=== PATIENT | male | born 1990 | race Caucasian/White ===

== ENCOUNTER 2018-02-17 20:50 | Inpatient (IN) | payer OTHER ==
[~2018-02-17] VITALS: Ht 175.3 cm; Wt 80.7 kg
[2018-02-17] MEDS ORDERED: MAGNESIUM HYDROXIDE 30 ML LIQUID UDC PO PRN (22:00)
[2018-02-17] MEDS ORDERED: THIAMINE HCL 200 MG/2 ML VIAL IM ONE (22:00)
[2018-02-17] MEDS ORDERED: NICOTINE POLACRILEX 4 MG GUM-PK OF TEN BC PRN (22:00)
[2018-02-17] MEDS ORDERED: LORAZEPAM 1 MG TABLET PO PRN ×2 (22:00)
[2018-02-17] MEDS ORDERED: CLONIDINE HCL 0.1 MG TABLET PO PRN (22:00)
[2018-02-17] MEDS ORDERED: MAG HYDROX/AL HYDROX/SIMETH 30 ML LIQUID UDC PO PRN (22:00)
[2018-02-17] MEDS ORDERED: LORAZEPAM 2 MG/1 ML VIAL IM PRN (22:00)
[2018-02-17] MEDS ORDERED: ONDANSETRON ODT 4 MG TAB.RAPDIS SL PRN (22:00)
[2018-02-17] MEDS ORDERED: ACETAMINOPHEN 325 MG TABLET PO PRN (22:00)
[2018-02-17] MEDS ORDERED: ONDANSETRON 4 MG/2 ML VIAL IM PRN (22:00)
[2018-02-17] MEDS ORDERED: LOPERAMIDE HCL 2 MG CAPSULE PO PRN ×2 (22:00)
[2018-02-17] MEDS ORDERED: NICOTINE 14 MG/24HR PATCH TD PRN (22:00)
[2018-02-17] MEDS ORDERED: DICYCLOMINE HCL 20 MG TABLET PO PRN (22:00)
[2018-02-17] MEDS ORDERED: MIRALAX 17 GM POWD.PACK PO PRN (22:00)
[2018-02-17] MEDS ORDERED: LORAZEPAM 1 MG TABLET PO ONE (23:15)
[2018-02-18] VITALS: BP 145/80
--- NOTE | 2018-02-18 | NUR ---
PRE - ADMISSION NOTE : Patient is 27 year old male came for supervised withdrawal from alcohol on 02/17/2018. He denies history of seizures , confirms history of withdrawal induced delirium, Depression, accidental intoxication-induced overdoses. He doesnt have Primary Care Provider at this time. Longest sober period was 8 days in January 2018. He states his alcohol use has negatively affected his social, mental and professional life. Upon assessment, pt is alert and oriented x4, speech is clear and audible. Pt noted to be anxious, restless time to time, worried, mild intoxicated without acute withdrawal signs. Heart rate regular. Denies chest pain or SOB. PERRLA, breathing is even and unlabored, lung sounds clear. Denies nausea, vomiting, tactile disturbances, visual or auditory hallucinations at this time. Abdomen is soft and non-distended. Bowel sounds present in all quadrants, last BM 02/17/18. Pt reports that BM is regular, QD. Pt's skin is warm, dry and intact, no open skin damages. GB=362/80, HR=80, RR=16, Spo2=97%, denies pain. Endfnq=[id number], Height=59. CIWA=9. Pt. will be admitted to the unit
[2018-02-18 00:02] LABS: BASOPHILS # (AUTO) 0.1 K/uL (0.0-8.0); BASOPHILS % (AUTO) 1.4 % (0.0-2.0); EOSINOPHILS # (AUTO) 0.3 K/uL (0.0-0.7); EOSINOPHILS % (AUTO) 3.8 % (0.0-7.0); HEMOGLOBIN 16.5 g/dL (12.5-16.3); LYMPHOCYTES # (AUTO) 2.3 K/uL (20.0-40.0); LYMPHOCYTES % (AUTO) 27.6 % (20.5-51.5); MEAN CORPUSCULAR HEMOGLOBIN 30.9 uug (23.8-33.4); MEAN CORPUSCULAR HGB CONC 35 g/dL (32.5-36.3); MONOCYTES % (AUTO) 11.6 % (0.0-11.0); NEUTROPHILS # (AUTO) 4.7 K/uL (1.8-8.9); NEUTROPHILS % (AUTO) 55.6 % (38.5-71.5); PLATELET COUNT (AUTO) 172 K/uL (152-348); RED BLOOD CELL COUNT(AUTO) 5.34 MIL/uL (4.06-5.63); WHITE BLOOD COUNT (AUTO) 8.4 K/uL (3.6-10.2)
--- NOTE | 2018-02-18 00:05 | NUR ---
PRN BENADRYL Pt. complains of difficulty falling asleep, insomnia. PRN BENADRYL given as ordered. Safety measures in place : bed on lowest position with side rails x2 up for safety, call light within reach. Will continue to monitor closely and offer help. Addendum: 02/18/18 at 0607 by LIZZETTE MERCADO RN WRONG ENTRY.NO PRN GIVEN
[2018-02-18 00:19] LABS: ALANINE AMINOTRANSFERASE 391 U/L (16-63); ALKALINE PHOSPHATASE 35 U/L (50-136); AMYLASE 48 U/L (25-115); ASPARTATE AMINOTRANSFERASE 151 U/L (15-37); BILIRUBIN,TOTAL 0.6 mg/dL (0.2-1.0); CARBON DIOXIDE 24 mmol/L (21-32); CHLORIDE 98 mmol/L (98-107); CREATININE 0.8 mg/dL (0.6-1.3); ETHANOL < 3 MG/DL (0-0); GLUCOSE 89 mg/dL (74-106); MAGNESIUM 1.8 mg/dL (1.8-2.4); POTASSIUM 3.3 mmol/L (3.5-5.1); TOTAL PROTEIN, SERUM 8.4 g/dL (6.4-8.2); UREA NITROGEN, BLOOD 13 mg/dL (7-18)
[2018-02-18 00:32] LABS: *AMPHETAMINE, URINE NEGATIVE (NEGATIVE); *BARBITURATE, URINE NEGATIVE (NEGATIVE); *CANNABINOID, URINE POSITIVE (NEGATIVE); *COCCAINE, URINE NEGATIVE (NEGATIVE); *OPIATE, URINE NEGATIVE (NEGATIVE); *PHENCYCLIDINE SCREEN,URINE NEGATIVE (NEGATIVE)
[2018-02-18] MEDS ORDERED: [UNRECOGNIZED DRUG - OTHER] (00:54)
[2018-02-18] MEDS ORDERED: orajel (00:54)
[2018-02-18] MEDS ORDERED: FLUT16SP NS (00:54)
--- NOTE | 2018-02-18 01:00 | NUR ---
ADMISSION NOTE : Patient is 27 year old male admitted for supervised withdrawal from alcohol on 02/17/2018. Pt. is NKA, FULL CODE, on Reg.Diet. He denies history of seizures , confirms history of withdrawal induced delirium, Depression, accidental intoxication-induced overdoses. He doesnt have Primary Care Provider at this time. Pt. brought his home meds, see PC infos for details. Medications have been reconciled. Longest sober period was 8 days in January 2018. He states his alcohol use has negatively affected his social, mental and professional life. Upon assessment, pt is alert and oriented x4, speech is clear and audible. Pt noted to be anxious, restless time to time, worried, mild intoxicated without acute withdrawal signs. Heart rate regular. Denies chest pain or SOB. PERRLA, breathing is even and unlabored, lung sounds clear. Denies nausea, vomiting, tactile disturbances, visual or auditory hallucinations at this time. Abdomen is soft and non-distended. Bowel sounds present in all quadrants, last BM 02/17/18. Pt reports that BM is regular, QD. Pt's skin is warm, dry and intact, no open skin damages. VS=021/80, HR=80, RR=16, Spo2=97%, denies pain. Ojagix=[id number], Height=59. CIWA=9. Pt oriented to room and unit. Safety measures in place, side rails up x 2 . Will continue to monitor closely and offer help. Substance use history per patient report: 1) alcohol (VODKA) - pt. reports last use was on 02/17/18, drinking 750ml daily for the past 3years., started drinking QD in 2014 Pt. smokes 10 cig. QD, occasionally smokes Marijuana. TX history: None Past Medical History : Depression, history of withdrawal induced delirium, insomnia, history of accidental intoxication-induced overdoses, right leg fracture and repair in 2002. Family History : Alcoholism, Depression.
[2018-02-18 04:00] VITALS: BP 95/56
--- NOTE | 2018-02-18 06:23 | NUR ---
END OF SHIFT NOTE : Patient is 27 year old male came for supervised withdrawal from alcohol on 02/17/2018. He denies history of seizures , confirms history of withdrawal induced delirium, Depression, accidental intoxication-induced overdoses. Pt. reports NKA, Full code and regular diet. He placed on 5 day Ativan taper on 02/18/2018. 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 CIWA taken when pt. was awake, last CIWA=9 at 04:00 . Intake= 350ml, voided x1, slept=4 hours. Safety measures in place : bed on lowest position with side rails x2 up for safety, all light within reach. Will continue to monitor closely and offer help.
[2018-02-18 08:00] VITALS: BP 121/63
--- NOTE | 2018-02-18 08:25 | NUR ---
START OF SHIFT: RECEIVED PT A/O X 4 LAYING IN BED. HE REPORTS FEELING A LITTLE SHAKY AND ANXIOUS BUT ALSO VERY FATIGUED.HIS FACE IS FLUSHED. TREMORS NOTED. ATIVAN TAPER TO BEGIN THIS AM. CIWA 10. ENCOURAGED BED REST AND INCREASED FLUIDS TODAY. PPD PLANTED TO LFA. SZ. PRECAUTIONS IN PLACE. WILL CONTINUE TO MONITOR AND OFFER SUPPORT.
[2018-02-18] MEDS ORDERED: TUBERCULIN,PURIF.PROT.DERIV. 5 TU/0.1 ML TEST ID ONE (09:00)
[2018-02-18] MEDS: LORAZEPAM 1 MG TABLET PO SCH ×4 (09:40→21:11)
[2018-02-18] MEDS: THIAMINE HCL 100 MG TABLET PO SCH (09:42)
[2018-02-18] MEDS: MULTIVITAMINS,THERAPEUTIC TABLET PO SCH (09:43)
[2018-02-18] MEDS: FOLIC ACID 1 MG TABLET PO SCH (09:43)
[2018-02-18 12:00] VITALS: BP 128/78
[2018-02-18] MEDS ORDERED: POTASSIUM CHLORIDE 10 MEQ TAB.PRT.SR PO ONE (13:00)
--- NOTE | 2018-02-18 14:15 | NUR ---
1200 CIWA DEFERRED. 1300 ATIVAN HELD PT IS ASLEEP. RESPIRATIONS EVEN AND UNLABORED. BED LOCKED AND LOW. CALL ETIENNE IN REACH. WILL CONTINUE TO MONITOR AND OFFER SUPPORT.
[2018-02-18 16:00] VITALS: BP 131/79
[2018-02-18] MEDS: IBUPROFEN 400 MG TABLET PO PRN (16:34)
--- NOTE | 2018-02-18 16:42 | NUR ---
PT REPORTS LOWER BACK PAIN 5/10 ON SCALE. PRN MOTRIN GIVEN TO MANAGE PAIN. POTASSIUM PO 30MEQ ADMINISTERED.
[2018-02-18] MEDS ORDERED: POTASSIUM CHLORIDE 10 MEQ TAB.PRT.SR PO SCH (17:00)
--- NOTE | 2018-02-18 17:45 | NUR ---
PT STATES THE MOTRIN WAS EFFECTIVE. PAIN 2/10 ON PAIN SCALE.
[2018-02-18] MEDS ORDERED: DOCOSANOL 2 GM CREAM TP SCH (18:00)
--- NOTE | 2018-02-18 18:45 | NUR ---
END OF SHIFT: PT STARTED ON ATIVAN TAPER THIS AM. HE RESTED ON AND OFF MOST OF SHIFT. 1500 MEDS HELD PT WAS ASLEEP. LAST CIWA 14 . HIS FACE IS FLUSHED AND HE IS TREMULOUS. PT REPORTED ANXIETY,SWEATS,FATIGUE AND RESTLESSNESS. SZ PRECAUTIONS NOTED. PPD TO BE READ ON 02/20. PT COMPLIANT WITH INCREASED FLUIDS. WILL PASS SHIFT REPORT TO ONCOMING NIGHT NURSE.
--- NOTE | 2018-02-18 19:30 | NUR ---
START OF SHIFT NOTE : Patient is 27 year old male came for supervised withdrawal from alcohol on 02/17/2018. He denies history of seizures , confirms history of withdrawal induced delirium, Depression, accidental intoxication-induced overdoses. Pt. reports NKA, Full code and regular diet. He placed on 5 day Ativan taper on 02/18/2018. No PRNs given during a day shift, one time order Potassium given during a day shift. CIWA taken when pt. was awake, last CIWA=14 at 16:00 . Pt. is in the activity room, participating in the meeting, communicating and socializing with other clients. Pt. complains of insomnia, increased level of anxiety, bilaterally trmor noted. Instructed patient to maintain adequate fluid and nutritional intake. Educated patient regarding the importance of compliance to treatment and medication regime, patient verbalized understanding. Safety measures in place : bed on lowest position with side rails x2 up for safety, all light within reach. Will continue to monitor closely and offer help.
[2018-02-18 20:00] VITALS: BP 136/87
--- NOTE | 2018-02-19 06:37 | NUR ---
END OF SHIFT NOTE : Patient is 27 year old male admitted for supervised withdrawal from alcohol on 02/17/2018. He denies history of seizures , confirms history of withdrawal induced delirium, Depression, accidental intoxication-induced overdoses. Pt. reports NKA, Full code and regular diet. He placed on 5 day Ativan taper on 02/18/2018. 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 Pt. spent time with other clients till late of the evening, meditated and went to the bed.CIWA taken when pt. was awake, last CIWA=9 at 04:00 . Intake= 591ml, voided x2, slept=6 hours. Safety measures in place : bed on lowest position with side rails x2 up for safety, all light within reach. Will continue to monitor closely and offer help.
--- NOTE | 2018-02-19 07:35 | NUR ---
START OF SHIFT PT IS A 27 Y/O M ADMITTED FOR MEDICALLY SUPERVISED ETOH WITHDRAWAL. PT IS PLACED ON A 5 DAY ATIVAN TAPER THAT STARTED ON 02/18/18 YESTERDAY AND TOLERATING WELL. PT IS A/OX4, RESPIRATIONS EVEN AND UNLABORED, PRESENTS ANXIETY, AGITATION, RESTLESSNESS, DIAPHORESIS, DEPRESSION, DIFFICULTY CONCENTRATING, BACK ACHE AND NECK PAIN, TREMORS NOTED. ENCOURAGED PT TO INCREASE FLUIDS FOR HYDRATION AND TO FACILITATE IN DETOX. ENCOURAGED PT TO ATTEND GROUPS AND INTERACT WITH PEERS TO PROMOTE COPING. LAST CIWA 9 AND ATIVAN 2 MG PO PRN GIVEN DURING HEAD START TEACHER PER HEAD START TEACHER NURSE. SIDE RAILS UPX2, BED IN LOW POSITION. CALL LIGHT WITHIN REACH. SAFETY MEASURES IN PLACE. WILL CONTINUE TO MONITOR AND PROVIDE SUPPORT.
[2018-02-19 08:00] VITALS: BP 127/70
[2018-02-19] MEDS: THIAMINE HCL 100 MG TABLET PO SCH (08:52)
[2018-02-19] MEDS: FOLIC ACID 1 MG TABLET PO SCH (08:52)
[2018-02-19] MEDS: MULTIVITAMINS,THERAPEUTIC TABLET PO SCH (08:52)
[2018-02-19] MEDS: LORAZEPAM 1 MG TABLET PO SCH ×3 (08:52→21:07)
[2018-02-19] MEDS: IBUPROFEN 400 MG TABLET PO PRN (08:52)
--- NOTE | 2018-02-19 09:52 | NUR ---
REASSESSMENT PT REPORTS IBUPROFEN EFFECTIVE. PT STATES PAIN IS MORE TOLERABLE AND FEEL HE MAY BE ABLE TO SLEEP BETTER. WILL CONTINUE TO MONITOR.
--- NOTE | 2018-02-19 10:45 | NUR ---
PRN PT C/O NECK AND LOWER BACK ACHE 04/22 PAIN; IBUPROFEN 400 MG PO PRN GIVEN. WILL MONITOR FOR EFFECTIVENESS. Addendum: 02/19/18 at 1047 by JITENDRA DOAN RN CORRECT TIME 0852
[2018-02-19 12:52] VITALS: BP 137/82
[2018-02-19 16:30] VITALS: BP 131/81
--- NOTE | 2018-02-19 19:00 | NUR ---
END OF SHIFT PT'S LAST CIWA 13 @1600. PT WAS ABLE TO ATTEND AFTERNOON AND EVENING GROUPS. PT CONTINUES ON A ATIVAN TAPER AND TOLERATING WELL. PT HAS BEEN GIVEN IBUPROFEN 400 MG PO PRN IN AM FOR BACK AND NECK PAIN. PT HAS TAKEN A SHOWER TODAY. PT ATE 75/75/100% OF MEALS. FLUID INTAKE: 2197, VOIDEDX4, BMX2. PT HAS BEEN COMPLIANT WITH MED REGIMEN AND TX PLAN. SAFETY MEASURES IN PLACE. WILL GIVE ENDORSEMENT TO BRONC BUSTER.
--- NOTE | 2018-02-19 19:30 | NUR ---
START OF SHIFT NOTE : Patient is 27 year old male came for supervised withdrawal from alcohol on 02/17/2018. He denies history of seizures , confirms history of withdrawal induced delirium, Depression, accidental intoxication-induced overdoses. Pt. reports NKA, Full code and regular diet. He placed on 5 day Ativan taper on 02/18/2018, tolerating well. PRN Motrin given during a day shift. CIWA taken when pt. was awake, last CIWA=13 at 16:00 . Pt. is in the activity room, participating in the meeting, communicating and socializing with other clients. Pt. complains of difficulty falling and staying asleep, increased level of anxiety, bilaterally tremor noted. Encouraged patient to participate in group therapies and verbalize feelings. Education provided in safety and hygiene care. Patient verbalized understanding. Safety measures in place : bed on lowest position with side rails x2 up for safety, all light within reach. Will continue to monitor closely and offer help.
[2018-02-19 20:00] VITALS: BP 153/85
--- NOTE | 2018-02-19 21:00 | NUR ---
PRN BENADRYL Pt. complains of difficulty falling asleep, insomnia. PRN BENADRYL given as ordered. Safety measures in place : bed on lowest position with side rails x2 up for safety, call light within reach. Will continue to monitor closely and offer help.
[2018-02-19] MEDS: diphenhydrAMINE 50 MG CAPSULE PO PRN (21:07)
--- NOTE | 2018-02-19 22:00 | NUR ---
RE-ASSESSMENT NIALL Pt. is sleeping, RR=16, unlabored and even . Safety measures in place : bed on lowest position with side rails x2 up for safety, call light within reach. Will continue to monitor closely and offer help.
[2018-02-20 03:08] LABS: HEPATITIS B SURFACE AG Negative (Negative)
[2018-02-20 04:00] VITALS: BP 115/74
--- NOTE | 2018-02-20 06:49 | NUR ---
END OF SHIFT NOTE : Patient is 27 year old male came for supervised withdrawal from alcohol on 02/17/2018. He denies history of seizures , confirms history of withdrawal induced delirium, Depression, accidental intoxication-induced overdoses. Pt. reports NKA, Full code and regular diet. He placed on 5 day Ativan taper on 02/18/2018, tolerating well. PRN BENADRYL given during supply cataloguer. Pt. spent time with other clients till late of the evening, was in the good mood, smiles, friendly and cooperative. CIWA taken when pt. was awake, last CIWA=9 at 04:00 . Intake= 1100ml, voided x2, slept=5 hours. Safety measures in place : bed on lowest position with side rails x2 up for safety, all light within reach. Will continue to monitor closely and offer help.
[2018-02-20 07:25] LABS: BILIRUBIN,DIRECT 0.2 mg/dL (0.0-0.2); BILIRUBIN,TOTAL 0.7 mg/dL (0.2-1.0); CREATININE 1.1 mg/dL (0.6-1.3); MAGNESIUM 2.2 mg/dL (1.8-2.4); TOTAL PROTEIN, SERUM 7.7 g/dL (6.4-8.2)
--- NOTE | 2018-02-20 07:37 | NUR ---
START OF SHIFT PT IS A 27 Y/O M ADMITTED FOR MEDICALLY SUPERVISED ETOH WITHDRAWAL. PT IS PLACED ON A 5 DAY ATIVAN TAPER AND ON THE THIRD DAY TOLERATING WELL. PT IS A/OX4, RESPIRATIONS EVEN AND UNLABORED, PRESENTS ANXIETY, AGITATION, RESTLESSNESS, DIAPHORESIS, DEPRESSION, DIFFICULTY CONCENTRATING, C/O BACK ACHE AND NECK PAIN, TREMORS NOTED. ENCOURAGED PT TO INCREASE FLUIDS FOR HYDRATION AND TO FACILITATE IN DETOX. EDUCATED PT WITH PLAN OF CARE FOR THE DAY. LAST CIWA 9 AND BENADRYL PRN GIVEN DURING ICE HANDLER PER ICE HANDLER NURSE. SIDE RAILS UPX2, BED IN LOW POSITION. CALL LIGHT WITHIN REACH. SAFETY MEASURES IN PLACE. WILL MONITOR AND PROVIDE SUPPORT.
[2018-02-20 08:00] VITALS: BP 105/61
[2018-02-20] MEDS: FOLIC ACID 1 MG TABLET PO SCH (08:34)
[2018-02-20] MEDS: THIAMINE HCL 100 MG TABLET PO SCH (08:34)
[2018-02-20] MEDS: MULTIVITAMINS,THERAPEUTIC TABLET PO SCH (08:34)
[2018-02-20] MEDS ORDERED: LORAZEPAM 1 MG TABLET PO SCH ×2 (09:00→21:00)
[2018-02-20 12:00] VITALS: BP 138/87
[2018-02-20] MEDS: IBUPROFEN 400 MG TABLET PO PRN ×2 (12:54→18:48)
[2018-02-20] MEDS: LORAZEPAM 1 MG TABLET PO SCH ×2 (12:54→16:31)
--- NOTE | 2018-02-20 12:54 | NUR ---
PRN PT C/O LOWER BACK PAIN 04/22. IBUPROFEN 400 MG PO PRN GIVEN. WILL MONITOR FOR EFFECTIVENESS.
--- NOTE | 2018-02-20 13:53 | NUR ---
REASSESSMENT PT REPORTED BACK PAIN IS NOW 3/10. WILL CONTINUE TO MONITOR.
[2018-02-20 16:00] VITALS: BP_SYST 130; BP_DIAS 91; BP_DIAS 93
--- NOTE | 2018-02-20 18:33 | NUR ---
START OF SHIFT NOTE: 27 year old male is admitted for Alcohol/"Vodka" withdrawal, continues 5 Day Ativan Taper. Withdrawal symptoms closely monitored. Patient remains compliant with treatment, medications, and diet regime. The patient is disheveled, sad with avoidant eye contact. The patient was educated in safety and hygiene care. Encouraged to independently perform hygiene care. Most recent CIWA=9 @1600: Patient presented with anxiety and agitation, restlessness, fatigue, abdominal cramps, nasal congestion, tears, generalized body aches, yawning, sweating, and tremors. Patient denies SI/HI. PRN Motrin 400 mg administrated for low back pain "04/22" at 1254 was effective, per day shift nurse report. PRN Motrin 400 mg PO for Toothache at 1848 will reassess at 1948. Encouraged to fluids intake as tolerated. Encouraged to attend group activities. Calm environment and minimized noises was provided. All needs met. Safety measures in the place: Call light within reach, bed in the lowest position and locked, padded rails up x2. Patient endorsed by day shift nurse.
--- NOTE | 2018-02-20 18:33 | NUR ---
END OF SHIFT PT'S LAST CIWA 9 @1600. PT ATTENDED AND PARTICIPATED IN GROUPS. PT CONTINUES ON AN ATIVAN TAPER AND TOLERATING WELL. PT HAS BEEN GIVEN IBUPROFEN 400 MG PO PRN FOR BACK. PT HAS TAKEN A SHOWER TODAY AND KEPT ROOM CLEAN. PT ATE 25/75/100% OF MEALS. FLUID INTAKE: 2197, VOIDEDX4, BMX2. PT HAS BEEN COMPLIANT WITH MED REGIMEN AND TX PLAN. SAFETY MEASURES IN PLACE. WILL GIVE ENDORSEMENT TO ELEMENTARY ELL TEACHER.
--- NOTE | 2018-02-20 18:48 | NUR ---
PRN IBUPROFEN 400 MG PO PRN GIVEN FOR C/O TOOTHACHE. WILL ENDORSE REASSESSMENT TO GEAR LAPPER NURSE.
[2018-02-20] MEDS ORDERED: [UNRECOGNIZED DRUG - OTHER] TOP PRN (19:30)
--- NOTE | 2018-02-20 19:48 | NUR ---
RE-ASSESSMENT During re-assessment patient reports, " Motrin helped for my toothache I don't have any pain now: "0/10". PRN Motrin PO administrated for toothache as ordered at 1848 by day shift nurse, was effective. All needs met. Safety measures on place. Call light within reach, bed in lowest position locked, padded rails up bilaterally. Will continue to monitor closely.
[2018-02-20 20:00] VITALS: BP 151/90
[2018-02-20] MEDS: diphenhydrAMINE 50 MG CAPSULE PO PRN (23:43)
--- NOTE | 2018-02-20 23:43 | NUR ---
PRN BENADRYL 50 MG 1 CAP PO and ORAJEL TOOTHACHE GEL FOR DENTAL PAIN ADMINISTRATION Patient c/o insomnia and toothache. PRN Benadryl 50 mg 1 cap PO and Orajel toothache gel for dental pain administrated as ordered. Patient tolerated well. All needs met. Safety measures on place. Call light within reach, bed in lowest position locked, padded rails up bilaterally. Will continue to monitor closely.
[2018-02-21] VITALS: BP 132/93
--- NOTE | 2018-02-21 00:43 | NUR ---
RE-ASSESSMENT Patient is sleeping. RR 15. Respirations even and unlabored. PRN Benadryl 50 mg 1 cap PO and Orajel toothache gel for dental pain administrated @2343 as ordered were effective. All needs met. Safety measures on place. Call light within reach, bed in lowest position locked, padded rails up bilaterally. Will continue to monitor closely.
[2018-02-21 04:00] VITALS: BP 114/80
--- NOTE | 2018-02-21 06:56 | NUR ---
END OF SHIFT NOTE Presented 27 year old male continues ordered 5 Day Ativan Taper for ETOH/"Vodka" withdrawal. Withdrawal symptoms closely monitored. Patient is alert and oriented x4. Patient reports "irritable mood, increased anxiety, depression, and restlessness". Emotional support provided, and patient 's reassuring. Patient noted diaphoretic, with clammy skin, disheveled, unkempt, unshaven with uncombed hair. His clothes thrown on floor. Educated in safety and hygiene care. Encouraged to independently perform hygiene care. CIWA=12 @2000, CIWA=9 @0000. Last CIWA=9 @0400. Patient presented with withdrawal symptoms of anxiety, agitation, nervousness, abdominal cramps, body aches, tremors, sweating, nasal congestion, and restlessness. PRN Benadryl 50 mg 1 cap PO and Orajel toothache gel for dental pain administrated @2343 as ordered were effective. Patient slept 6 hours, intake 1,302 ml, voided x4. All needs met. Safe and calm environment with minimized noises was provided. Patient slept 5 hours, intake 2,291 ml, voided x3, stool x4. Safety measures in the place: Call light within reach, bed in the lowest position locked, padded rails up x2. Patient endorsed to day shift nurse.
--- NOTE | 2018-02-21 07:48 | NUR ---
START OF SHIFT NOTE Received report from night nurse, 27 year old male admitted for ETOH withdrawal. Patient cont with Ativan taper tolerating well. Per endorsement patient received PRN Benadryl effective per night nurse. Patient slept for 5 hours, last CIWA score was 9. Received patient asleep, responsive to verbal and tactile stimuli. Breathing normal no SOB noted. Respiration even non labored. Skin intact warm and dry to touch. Patient due for scheduled medications.Educated patient with current plan of care of medications regimen and importance of attending groups and activities with good verbal understanding. Safety measures in place. Will cont with plan of care.
[2018-02-21 08:00] VITALS: BP 107/60
[2018-02-21] MEDS: MULTIVITAMINS,THERAPEUTIC TABLET PO SCH (08:22)
[2018-02-21] MEDS: LORAZEPAM 1 MG TABLET PO SCH ×3 (08:22→20:59)
[2018-02-21] MEDS: THIAMINE HCL 100 MG TABLET PO SCH (08:22)
[2018-02-21] MEDS: FOLIC ACID 1 MG TABLET PO SCH (08:22)
[2018-02-21 12:00] VITALS: BP 132/84
[2018-02-21] MEDS ORDERED: HYDR25CA PO (13:32)
[2018-02-21] MEDS ORDERED: DIPH50CA37 PO (13:32)
[2018-02-21] MEDS ORDERED: CLON0.1T14 PO (13:32)
[2018-02-21 16:00] VITALS: BP 133/83
--- NOTE | 2018-02-21 16:54 | NUR ---
CARE ENDORSED All pertinent information given and care endorsed to nurse in charge.
--- NOTE | 2018-02-21 18:58 | NUR ---
START OF SHIFT NOTE: Presented 27 year old male admitted for Alcohol/Vodka withdrawal, continues ordered 5 day Ativan Taper. Patient remains compliant with treatment, medications, and diet regime per day shift nurse report. Withdrawal symptoms closely monitoring. Patient is alert and oriented x4, reports NKA, is on Full Code, Fall and Seizures Precautions. Patient 's states: " My anxiety increased, I have restlessness, and feelings of low self- esteem, and irritability. Patient denied SI/HI. Emotional support provided, and patient 's reassuring. Last CIWA=10 @1600 per day shift nurse report. During day shift patient presented with anxiety, agitation, nervousness, tremors, sweating, restlessness, fatigue, and generalized body aches. Skin is intact, warm and dry to touch. Encouraged to increasing oral fluids as tolerated. Patient attending groups therapy, and reports: "Group activities help me a lot". No PRN Medications given, per outgoing day shift nurse report. Patient attended group therapy. Encouraged fluids intake as tolerated. All needs met. Safety measures in the place: Call light within reach, bed in the lowest position and locked, padded rails up x2. Patient endorsed to day shift nurse.
--- NOTE | 2018-02-21 18:58 | NUR ---
END OF SHIFT Pt is a 27 yr old male, AA&Ox4. Pt was admitted on 02/17/18 for ETOH withdrawal and is on 5 day Ativan taper as ordered. Medication shanelle well. Pt has been cooperative with medication regimen and plan of care. Pt attended group therapy. Pt c/o anxiety but is able to cope with anxiety level. Skin is intact, warm and moist to touch. No PRNs were given during the day. Last CIWA score was at 1600. Pt is on fall and seizure precautions. Call light is within reach. Endorsed to security shift manager nurse.
[2018-02-21 20:00] VITALS: BP 141/96
[2018-02-21] MEDS: IBUPROFEN 400 MG TABLET PO PRN (21:03)
--- NOTE | 2018-02-21 21:03 | NUR ---
PRN MOTRIN 400 MG 1 TAB PO ADMINISTRATION Patient c/o Low Back Pain. Patient reports pain level "6/10". PRN Motrin 400 mg PO administrated with full glass of water as ordered. Patient tolerated well. All needs met. All needs met. Safe and calm environment with minimized noises was provided. Safety measures on place. Call light within reach, bed in lowest position locked, padded rails up bilaterally. Will continue to monitor closely.
--- NOTE | 2018-02-21 22:03 | NUR ---
RE-ASSESSMENT PRN Benadryl PO administrated for insomnia at 2043 was effective. All needs met. Safe and calm environment with minimized noises was provided. Safety measures on place. Call light within reach, bed locked in lowest position, padded rails up bilaterally. Will continue to monitor closely. RE-ASSESSMENT Patient reports low back pain level decreased to "3/10". PRN Motrin 400 mg PO administrated for low back pain "6/10" at 2102 was effective. All needs met. Safe and calm environment with minimized noises was provided. Safety measures on place. Call light within reach, bed locked in lowest position, padded rails up bilaterally. Will continue to monitor closely.
[2018-02-21] MEDS: diphenhydrAMINE 50 MG CAPSULE PO PRN (23:08)
--- NOTE | 2018-02-21 23:08 | NUR ---
PRN BENADRYL 50 MG 1 CAPSULE PO ADMINISTRATION Patient asked aid for insomnia. PRN Benadryl 50 mg PO administrated with full glass of water as ordered. All needs met. Safe and calm environment with minimized noises was provided. Safety measures on place. Call light within reach, bed in lowest position locked, padded rails up bilaterally. Will continue to monitor closely.
[2018-02-22] VITALS: BP 146/95
--- NOTE | 2018-02-22 00:08 | NUR ---
RE-ASSESSMENT Patient is sleeping. Respirations even and unlabored. RR 15. PRN Benadryl PO administrated for insomnia at 2308 was effective. All needs met. Safe and calm environment with minimized noises was provided. Safety measures on place. Call light within reach, bed locked in lowest position, padded rails up bilaterally. Will continue to monitor closely.
--- NOTE | 2018-02-22 00:18 | NUR ---
PRN CLONIDINE 0.1 MG 1 TAB PO ADMINISTRATION PRN Clonidine 0.1 mg 1 tab PO administrated for BP:146/95, as ordered with full glass of water. Patient tolerated well. All needs met. Safety measures on place. Call light within reach, bed in lowest position locked, padded rails up bilaterally. Will continue to monitor closely.
--- NOTE | 2018-02-22 01:08 | NUR ---
RE-ASSESSMENT BP decreased from 146/95 to 134/81. PRN Clonidine 0.1 mg PO administrated @0008 was effective. All needs met. Safety measures on place. Call light within reach, bed in lowest position and locked, padded rails up bilaterally rails up bilaterally. Will continue to monitor closely.
--- NOTE | 2018-02-22 04:00 | NUR ---
VS REFUSED, CIWA DEFERRED VS refused, CIWA deferred @0400 due to patient sleeping; to be assessed and scored while patient is awake. Patient's respirations are even and unlabored. RR:16. All needs met. Safety measures in place: Call light within reach, bed locked in low position, padded side rails up x2. Will continue to monitor closely.
[2018-02-22 05:00] VITALS: BP 124/86
--- NOTE | 2018-02-22 07:15 | NUR ---
END OF SHIFT NOTE: Patient is a 27 year old male continues 5 Day Ativan Taper for Alcohol (Vodka) withdraw. Patient is alert and oriented x4. Patient appears sad, worry, with flat affect, depression, and irritability. Patient denied SI/HI. Emotional support and reassuring provided. Withdrawal symptoms was closely monitored. CIWA=12 @2000, CIWA=8 @0000. Last CIWA=8 @0500. CIWA taken when patient's awake. Throughout my hourly shift manager patient presented with anxiety, agitation, depression, irritability, fatigue, nervousness, body aches, stomach cramps, sweating, and insomnia. PRN Motrin 400 mg PO administrated for low back pain "6/10" at 2103, PRN Benadryl 50 mg PO administrated for insomnia at 2308, and PRN Clonidine 0.1 mg PO administrated for BP: 146/95 at 0018 were effective. Skin is intact, warm and dry to touch. Encouraged to fluid intake as tolerated. Encourage to attended groups activities. Safe and calm environment with minimized noises was provided. Patient slept 5 hours, intake 2,453 ml, voided x4, stool x2. Patient denies SI/HI at this time. All needs met. Safety measures in the place by hospital policy: Call light within reach, bed in the lowest position locked, padded rails up x2. Patient endorsed to day shift nurse.
--- NOTE | 2018-02-22 07:26 | NUR ---
BEGINNING OF SHIFT Patient endorsement report received from advertising dispatch clerk nurse, all pertinent information discussed. Patient is a 27 year old male with admitting Dx: etoh withdrawal. Patient continues under very close observation, patient is scheduled to begin day 4 of 5 day Ativan. taper as ordered. Received PRN: Benadryl, Motrin and Clonidine during advertising dispatch clerk. slept for 5 hours. Fall and seizure precautions observed at all times. Patient received in bed with eyes closed, respirations are even and unlabored. will educated regarding plan of care for the day, and medication regimen. fall and seizure precautions observed and in place. will continue to monitor closely. safety measures in place.
[2018-02-22 08:37] VITALS: BP 103/67
[2018-02-22] MEDS: THIAMINE HCL 100 MG TABLET PO SCH (08:38)
[2018-02-22] MEDS: FOLIC ACID 1 MG TABLET PO SCH (08:38)
[2018-02-22] MEDS: MULTIVITAMINS,THERAPEUTIC TABLET PO SCH (08:38)
[2018-02-22] MEDS ORDERED: LORAZEPAM 1 MG TABLET PO SCH ×2 (09:00)
[2018-02-22] MEDS ORDERED: KETOROLAC TROMETHAMINE 30 MG INJ IM PRN (11:15)
[2018-02-22] MEDS: LIDOCAINE 5% PATCH TD SCH (12:18)
[2018-02-22] MEDS: METHOCARBAMOL 500 MG TABLET PO PRN ×2 (12:18→20:37)
--- NOTE | 2018-02-22 12:18 | NUR ---
PRN ROBAXIN Patient c/o increase muscle aches 05/22, provided with non pharmacological interventions with no relief, administered robaxin as ordered, will monitor effectiveness of medication.
[2018-02-22 12:57] VITALS: BP 135/82
--- NOTE | 2018-02-22 13:18 | NUR ---
ROBAXIN REASSESSMENT Patient reports medication effective, current pain level 2/10, as per patient tolerable pain level. will continue to monitor.
[2018-02-22 17:36] VITALS: BP 140/89
--- NOTE | 2018-02-22 18:59 | NUR ---
END OF SHIFT Patient alert and oriented x4, monitored closely during shift. Patient has a worried, and anxious facial expression. Patient at times with increase anxiety, provided with calming reassurance as needed along with non pharmacological interventions as needed . Patient has clothes thrown on floor, encouraged patient to maintain personal area. During shift patient presented with: tremors, sweats, anxiety, and agitation with ciwa score of: 8, last ciwa score of: 5. detox medication effective at reducing s/sx of withdrawal. Patient is scheduled to be discharged tomorrow, noted self motivated towards sobriety. Patient was administered PRN: Robaxin as ordered, medication effective. Patient was encouraged adequate PO fluid intake as tolerated. Patient encouraged to participate in therapy sessions, patient denies any SI/HI, noted participating. Patient was encouraged to verbalize feelings, encouraged to develop coping skills and utilization of non pharmacological interventions. Patients safety measures are in place. call light kept with in reach, will continue to monitor. Endorsed to dipper and baker nurse, all pertinent information discussed.
--- NOTE | 2018-02-22 18:59 | NUR ---
START OF SHIFT NOTE: Endorsed patient completed ordered 5 day Ativan taper for Alcohol/ "Vodka" withdrawal. Patient states "Ativan helped a lot, and reduced my withdrawal symptoms". Patent reports NATALIE, is on Full Code, Regular Diet, is on Fall and Seizures Precautions. Patient denies History of withdrawal-induced seizures. Patient denies SI/HI. Patient is alert and oriented x4. Patient noted anxious, agitated, disheveled, easily overwhelmed with poor eye contact. Educated in safety and hygiene care. Encouraged to independently perform hygiene care. Last CIWA=5 @1600 per outgoing day shift nurse report: Patient presented with moderate withdrawal symptoms of anxiety, agitation, body aches, nausea, nervousness, tremors, sweating, and headache. PRN Robaxin 750 mg PO administrated at 1218 for myalgia was effective per day shift nurse report. Patient remains compliant with treatment, medications and diet regime Patient remains compliant with treatment, medications and diet regime. Encouraged to fluid intake as tolerated. Encourage to attended groups activities. Patient scheduled discharging tomorrow. All needs met. Safety measures in place: Call light within reach, bed is locked in lowest position, padded bed rails up bilaterally. Patient endorsed by day shift nurse. Will continue to monitor closely.
[2018-02-22 20:00] VITALS: BP 137/84
--- NOTE | 2018-02-22 20:37 | NUR ---
PRN ROBAXIN 500 MG 1 TABLET PO ADMINISTRATION Patient c/o myalgia. PRN Robaxin 500 mg PO administrated with full glass of water as ordered. All needs met. Safe and calm environment with minimized noises was provided. Safety measures on place. Call light within reach, bed locked in lowest position, padded rails up bilaterally. Will continue to monitor closely.
--- NOTE | 2018-02-22 21:37 | NUR ---
RE-ASSESSMENT Patient reports "Robaxin help for my muscle spasm. I am feeling better now, and don't have musle spasm anymore". PRN Robaxin 500 mg PO administrated for myalgia was effective. All needs met. Safe and calm environment with minimized noises was provided. Safety measures on place. Call light within reach, bed locked in lowest position, padded rails up bilaterally. Will continue to monitor closely.
[2018-02-22] MEDS: diphenhydrAMINE 50 MG CAPSULE PO PRN (22:29)
--- NOTE | 2018-02-22 22:29 | NUR ---
PRN BENADRYL 50 MG 1 CAPSULE PO ADMINISTRATION Patient c/o insomnia. PRN Benadryl 50 mg PO administrated with full glass of water as ordered. All needs met. Safe and calm environment with minimized noises was provided. Safety measures on place. Call light within reach, bed in lowest position locked, padded rails up bilaterally. Will continue to monitor closely.
--- NOTE | 2018-02-22 23:29 | NUR ---
RE-ASSESSMENT Patient is sleeping. RR 17. Respirations even and unlabored. PRN Benadryl 50 mg 1 cap PO administrated for insomnia at 2229 as ordered was effective. All needs met. Safety measures on place. Call light within reach, bed in lowest position locked, padded rails up bilaterally. Will continue to monitor closely.
[2018-02-23] VITALS: BP 135/84
[2018-02-23 04:00] VITALS: BP 112/58
--- NOTE | 2018-02-23 07:08 | NUR ---
END OF SHIFT NOTE Patient is a 27 year old male presented for ETOH/Vodka withdrawal. He is completed 5 Day Ativan Taper. Patient is alert and oriented x4. CIWA=8 @20:00, CIWA=6 @0000. Last CIWA=7 @0400. Patient presented with anxiety, agitation, depression, irritability, fatigue, nervousness, myalgia, stomach cramps, sweating, and insomnia. Education provided to use of Relaxation Techniques: Deep breathing exercises, guided imagery, and visualization. PRN Robaxin 500 mg PO administrated for myalgia at 2036 and PRN Benadryl 50 mg PO administrated for insomnia @2228 were effective. Patient remains compliant with treatment, medications, and diet regime. Education provided to use of Relaxation Techniques: deep breathing exercises, guided imagery, and visualization. Calm environment and minimized noises was provided. Patient slept 7 hours, intake 500 ml, voided x2. Patient scheduled for discharge today. Encouraged to fluid intake as tolerated. All needs met. Safety measures in the place by hospital policy: Call light within reach, bed in the lowest position and locked, padded rails up x2. Patient endorsed to day shift nurse, report given.
--- NOTE | 2018-02-23 07:48 | NUR ---
BEGINNING OF SHIFT Patient endorsement report received from crown buffer nurse, all pertinent information discussed. Patient is a 27 year old male with admitting Dx: etoh withdrawal. Patient continues under very close observation, patient is scheduled to be discharged this morning, patient noted self motivated towards sobriety. Received PRN: Benadryl, and Robaxin during crown buffer. slept for 7 hours. Fall and seizure precautions observed at all times. Patient received in bed with eyes closed, respirations are even and unlabored. will educated regarding plan of care for the day, and medication regimen, along with all discharge instructions. fall and seizure precautions observed and in place. will continue to monitor closely. safety measures in place.
[2018-02-23 08:23] VITALS: BP 111/66
[2018-02-23] MEDS: FOLIC ACID 1 MG TABLET PO SCH (08:24)
[2018-02-23] MEDS: THIAMINE HCL 100 MG TABLET PO SCH (08:24)
[2018-02-23] MEDS: LIDOCAINE 5% PATCH TD SCH (08:24)
[2018-02-23] MEDS: MULTIVITAMINS,THERAPEUTIC TABLET PO SCH (08:24)
--- NOTE | 2018-02-23 09:35 | NUR ---
DISCHARGE INSTRUCTIONS Patient discharged off the unit at 0935, in stable condition, not in any apparent acute distress. patient was educated regarding all discharge instructions and teaching with good verbal understanding. patient noted self motivated towards sobriety. vital signs WNL. patient with last ciwa score of: 4. patients home medications, prescriptions and discharge instructions were placed in patients personal duffel bag. patient off the unit at 0935 in stable condition.
== END 2018-02-23 09:35 | disposition other institution (70) | DRG 895 ==
LOC: SRC 21:49
PROVIDERS: ADMIT Internal Medicine; ATTEND Internal Medicine
PROC: HZ2ZZZZ Detoxification Services for Substance Abuse Treatment (ICD-10-PCS; principal; 2018-02-17)
PROC: HZ41ZZZ Group Counseling for Substance Abuse Treatment, Behavioral (ICD-10-PCS; 2018-02-19)
PROC: HZ31ZZZ Individual Counseling for Substance Abuse Treatment, Behavioral (ICD-10-PCS; 2018-02-21)
DX: F10.230 Alcohol dependence with withdrawal, uncomplicated (principal); K70.10 Alcoholic hepatitis without ascites; I15.9 Secondary hypertension, unspecified; E87.6 Hypokalemia; F12.10 Cannabis abuse, uncomplicated; F17.210 Nicotine dependence, cigarettes, uncomplicated; F90.9 Attention-deficit hyperactivity disorder, unspecified type; Y90.9 Presence of alcohol in blood, level not specified; Z81.1 Family history of alcohol abuse and dependence; Z91.89 Other specified personal risk factors, not elsewhere classified; G89.29 Other chronic pain; M54.5 Low back pain; F32.9 Major depressive disorder, single episode, unspecified
CPT/HCPCS: 36415; 70030-TC; 80307; 80349; 83735; 85025; 86580; 86592; 86705; 86803; 87340; 87806; A4663; G0480; Q0162; Q0163